=== PATIENT | female | born 1950 | race Caucasian/White ===

== ENCOUNTER → 2016-06-29 | Outpatient (CLI) | payer OTHER ==
--- NOTE | 2016-06-29 14:12 | REPMRS ---
Patient History The patient states she had a clinical breast exam in 03/31 Patient is postmenopausal, had previous chest radiation therapy at age 44, has history of cancer in the right breast at age 43, had previous chemotherapy at age 43, and had first child at age 35. Family history of breast cancer in maternal grandmother and ovarian cancer in maternal grandmother. Malignant lumpectomy of the right breast, 1994. Chemotherapy, 1994. Radiation therapy of the right breast, 1994. Took hormonal contraceptives for 20 years. Took tamoxifen for 5 years. Digital Woman Screen Mammo: June 29, 2016 - Exam #: [id number] Bilateral CC and MLO view(s) were taken. Technologist: Alysia Lewis, Technologist Prior study comparison: June 28, 2015, bilateral digital mammo screening bilat, performed at [facility]. November 25, 2014, right breast digital mammo diagnostic unilateral, performed at [facility]. FINDINGS: There are scattered fibroglandular densities. There has been no change in the appearance of the mammogram from the prior studies. There are stable post treatment changes in the right breast. There is a mild amount of scattered fibroglandular density which is fairly symmetric. There is no interval development of dominant mass, architectural distortion, or clustered microcalcification suggestive of malignancy. ASSESSMENT: BI-RADS/ACR category 2 mammogram. Benign finding(s). Recommendation Routine screening mammogram in 1 year (for women over age 40). This mammogram was interpreted with the aid of an FDA-approved computer-aided dectection system. Electronically Signed By: Virgilio Seo MD 06/29/16 2608
== END ==
LOC: M WHC 10:29
PROVIDERS: ATTEND Nurse Practitioner Family
DX: Z12.31 Encounter for screening mammogram for malignant neoplasm of breast (principal); Z78.0 Asymptomatic menopausal state; R92.8 Other abnormal and inconclusive findings on diagnostic imaging of breast

== ENCOUNTER → 2017-03-21 | Outpatient (REF) | payer MEDICARE, OTHER | LOC: M SFHCWAGY 11:32 | PROVIDERS: ATTEND Nurse Practitioner Family | DX: Z12.4 Encounter for screening for malignant neoplasm of cervix (principal); N76.89 Other specified inflammation of vagina and vulva; Z12.12 Encounter for screening for malignant neoplasm of rectum | CPT/HCPCS: 82270; G0101; G0123 ==

== ENCOUNTER → 2017-07-02 | Outpatient (CLI) | payer MEDICARE, OTHER | LOC: M WHC 14:39 | DX: Z12.31 Encounter for screening mammogram for malignant neoplasm of breast (principal); R92.8 Other abnormal and inconclusive findings on diagnostic imaging of breast; M81.0 Age-related osteoporosis without current pathological fracture; Z78.0 Asymptomatic menopausal state; Z92.3 Personal history of irradiation; Z85.3 Personal history of malignant neoplasm of breast; Z92.21 Personal history of antineoplastic chemotherapy; Z92.0 Personal history of contraception; N95.9 Unspecified menopausal and perimenopausal disorder | CPT/HCPCS: 77067 ==

== ENCOUNTER → 2018-07-03 | Outpatient (CLI) | payer MEDICARE, OTHER ==
--- NOTE | 2018-07-03 14:00 | REPMRS ---
Patient History The patient states she had a clinical breast exam in 04/2018. Family history of breast cancer and ovarian cancer in maternal grandmother. Malignant lumpectomy of the right breast, 1994. Chemotherapy, 1994. Radiation therapy of the right breast, 1994. Took hormonal contraceptives for 20 years. Took tamoxifen for 5 years. Digital Woman Screen Mammo: July 03, 2018 - Exam #: [id number] Bilateral CC and MLO view(s) were taken. Technologist: Inez Levine, Technologist Prior study comparison: July 02, 2017, digital woman screen mammo performed at [facility]. June 29, 2016, digital woman screen mammo performed at [facility]. FINDINGS: The breast tissue is heterogeneously dense. This may lower the sensitivity of mammography. There are stable post treatment changes in the left breast. There is a moderate amount of heterogeneously dense fibroglandular tissue which is fairly symmetric. There is no interval development of dominant mass, architectural distortion, or clustered microcalcification typical of malignancy. There has been no change in the appearance of the mammogram from the prior studies. 3-D tomosynthesis shows no additional findings. Assessment: BI-RADS/ACR category 2 mammogram. Benign Findings. Recommendation Routine screening mammogram of both breasts in 1 year (for women over age 40). This mammogram was interpreted with the aid of an FDA-approved computer-aided dectection system. Electronically Signed By: Virgilio Seo MD 07/03/18 1400
== END ==
LOC: M WHC 11:14
PROVIDERS: ATTEND Nurse Practitioner Family
DX: Z12.31 Encounter for screening mammogram for malignant neoplasm of breast (principal); Z80.3 Family history of malignant neoplasm of breast; Z80.41 Family history of malignant neoplasm of ovary; Z85.3 Personal history of malignant neoplasm of breast

== ENCOUNTER → 2019-08-14 | Outpatient (CLI) | payer MEDICARE, BC ==
--- NOTE | 2019-08-14 16:21 | REPMRS ---
Patient History The patient states she had a clinical breast exam in 2019. Family history of breast cancer and ovarian cancer in maternal grandmother. Malignant lumpectomy of the right breast, 1994. Chemotherapy, 1994. Radiation therapy of the right breast, 1994. Took hormonal contraceptives for 20 years. Took tamoxifen for 5 years. Digital Woman Screen Mammo: August 14, 2019 - Exam #: [id number] Bilateral CC and MLO view(s) were taken. Technologist: Lori Abdi, Technologist Prior study comparison: July 03, 2018, bilateral digital woman screen mammo performed at [facility]. July 02, 2017, digital woman screen mammo performed at [facility]. June 29, 2016, digital woman screen mammo performed at [facility]. FINDINGS: The breast tissue is extremely dense which could obscure a lesion on mammography. The Volpara volumetric breast density category is: D. There is an extremely dense symmetrical pattern of residual fibroglandular tissue. There has been no change in the appearance of the mammogram from the previous studies. There is no interval development of dominant mass, archetectural distortion, or grouped microcalcifications suggestive of malignancy. 3-D tomosynthesis shows no additional findings. Assessment: BI-RADS/ACR category 1 mammogram. Negative Mammogram. Recommendation Routine screening mammogram of both breasts in 1 year (for women over age 40). This mammogram was interpreted with the aid of an FDA-approved computer-aided dectection system. Electronically Signed By: Virgilio Seo MD 08/14/19 2316
--- NOTE | 2019-08-21 14:14 | DEXA ---
AP SPINE L1 - L4 1.009 -1.7 0.0 LT FEMUR TOTAL 0.772 -1.9 -0.5 LT NECK 0.73 -2.2 -0.6 RT FEMUR TOTAL 0.773 -1.9 -0.5 RT NECK 0.715 -2.3 -0.7 TOTAL BODY TOTAL OTHER COMMENTS: There is low bone density of the spine and hips. The density of the spine is decreased 6.1% since the initial exam on 11/03/2002. The increased 2.0% since the most recent exam on 07/02/2017. The density of the left hip has decreased 9.5% since initial exam on 11/03/2002. The density of the left hip has increased 3.2% since the most recent exam on 07/02/2017. The density of the right hip has decreased 1.9% since initial exam on 11/03/2002. The density of the right hip has increased 0.1% since most recent exam on 07/02/2017. FOLLOW-UP: Recommendation for the next bone density exam: 2 years.. VAN
== END ==
LOC: M WHC 13:21
PROVIDERS: ATTEND Nurse Practitioner Family
DX: Z12.31 Encounter for screening mammogram for malignant neoplasm of breast (principal); M81.0 Age-related osteoporosis without current pathological fracture; Z80.3 Family history of malignant neoplasm of breast; Z80.41 Family history of malignant neoplasm of ovary; Z85.3 Personal history of malignant neoplasm of breast; Z92.21 Personal history of antineoplastic chemotherapy; Z92.3 Personal history of irradiation; M85.851 Other specified disorders of bone density and structure, right thigh; M85.852 Other specified disorders of bone density and structure, left thigh; M85.88 Other specified disorders of bone density and structure, other site

== ENCOUNTER → 2020-12-16 | Outpatient (CLI) | payer MEDICARE, BC ==
--- NOTE | 2020-12-16 14:56 | REPMRS ---
Patient History The patient states she had a clinical breast exam on 05-25-2020. Family history of breast cancer and ovarian cancer in maternal grandmother. Malignant lumpectomy of the right breast, 1994. Chemotherapy, 1994. Radiation therapy of the right breast, 1994. Took hormonal contraceptives for 20 years. Took tamoxifen for 5 years. Patient states no breast complaints today. Patient has signed MRS History Sheet. Digital Woman Screen Mammo: December 16, 2020 - Exam #: [id number] Bilateral CC and MLO view(s) were taken. Technologist: Marti Tovar, Behavioral Modification Assistant Prior study comparison: August 14, 2019, bilateral digital woman screen mammo performed at [facility]. July 03, 2018, bilateral digital woman screen mammo performed at [facility]. July 02, 2017, digital woman screen mammo performed at [facility]. FINDINGS: The breast tissue is extremely dense which could obscure a lesion on mammography. The Volpara volumetric breast density category is: D. There are stable post treatment changes again noted on the right. There is an extremely dense symmetrical pattern of residual fibroglandular tissue. There has been no change in the appearance of the mammogram from the previous studies. There is no interval development of dominant mass, archetectural distortion, or grouped microcalcifications suggestive of malignancy. 3-D tomosynthesis shows no additional findings. Assessment: BI-RADS/ACR category 2 mammogram. Benign Findings. Recommendation Routine screening mammogram of both breasts in 1 year (for women over age 40). This mammogram was interpreted with the aid of an FDA-approved computer-aided dectection system. Electronically Signed By: Virgilio Seo MD 12/16/20 0798
== END ==
LOC: M WHC 13:28
PROVIDERS: ATTEND Nurse Practitioner Women's Health
DX: Z12.31 Encounter for screening mammogram for malignant neoplasm of breast (principal); Z80.3 Family history of malignant neoplasm of breast; Z80.41 Family history of malignant neoplasm of ovary; Z85.3 Personal history of malignant neoplasm of breast; Z92.21 Personal history of antineoplastic chemotherapy; Z92.3 Personal history of irradiation; Z92.0 Personal history of contraception; Z92.29 Personal history of other drug therapy
CPT/HCPCS: 77063; 77067; G0463

== ENCOUNTER → 2021-12-26 | Outpatient (CLI) | payer MEDICARE, BC | LOC: M WHC 10:38 | PROVIDERS: ATTEND General Practice | DX: Z12.31 Encounter for screening mammogram for malignant neoplasm of breast (principal) ==